=== PATIENT | male | born 1960 | race African-American/Black ===

== ENCOUNTER 2019-06-29 08:58 | Emergency (ER) | payer MEDICAID ==
[~2019-06-29] VITALS: Ht 175.3 cm; Wt 91.0 kg
[2019-06-29] MEDS ORDERED: IBUPROFEN 400MG TABLET PO ONE (09:30)
[2019-06-29 09:35] VITALS: BP 145/97
== END 2019-06-29 10:41 | disposition home or self-care (01) ==
LOC: ER 09:16
DX: M25.552 Pain in left hip (principal)
CPT/HCPCS: 73502; 99283

== ENCOUNTER 2019-08-03 12:42 | Emergency (ER) | payer MEDICAID ==
[~2019-08-03] VITALS: Ht 175.3 cm; Wt 89.0 kg
[2019-08-03 12:48] VITALS: BP 115/74
[2019-08-03] MEDS ORDERED: TETANUS, DIPHTHERIA, PERTUSSIS VAC/PF 0.5ML (>7YR OLD) IM ONE (13:15)
[2019-08-03] MEDS ORDERED: ACETAMINOPHEN 500MG TABLET PO ONE (13:30)
== END 2019-08-03 15:06 | disposition home or self-care (01) ==
LOC: ER 12:42
DX: S61.411A Laceration without foreign body of right hand, initial encounter (principal); W54.0XXA Bitten by dog, initial encounter; Y93.89 Activity, other specified; Y92.89 Other specified places as the place of occurrence of the external cause; Y99.8 Other external cause status
CPT/HCPCS: 73130; 90471; 90715; 99283

== ENCOUNTER 2019-08-24 15:24 | Emergency (ER) | payer MEDICAID ==
[~2019-08-24] VITALS: Ht 177.8 cm; Wt 85.0 kg
[2019-08-24 16:18] VITALS: BP 129/84
[2019-08-24] MEDS ORDERED: IBUPROFEN 200MG TABLET PO ONE (16:30)
== END 2019-08-24 18:57 | disposition home or self-care (01) ==
LOC: ER 15:24
DX: S61.451A Open bite of right hand, initial encounter (principal); W54.0XXA Bitten by dog, initial encounter; Y93.89 Activity, other specified; Y92.89 Other specified places as the place of occurrence of the external cause; R03.0 Elevated blood-pressure reading, without diagnosis of hypertension
CPT/HCPCS: 73130; 99283

== ENCOUNTER 2022-10-15 18:23 | Emergency (ER) | payer MEDICAID ==
[~2022-10-15] VITALS: Ht 167.6 cm; Wt 86.0 kg
[2022-10-15] MEDS ORDERED: KETOROLAC 30MG/ML VIAL IM ONE (22:00)
[2022-10-15] MEDS ORDERED: METHOCARBAMOL 500MG TABLET PO ONE (22:00)
[2022-10-15] MEDS ORDERED: METH-653 MT (22:11)
[2022-10-15 22:12] VITALS: BP 165/97
== END 2022-10-15 22:18 | disposition home or self-care (01) ==
LOC: ER 18:23
DX: S33.5XXA Sprain of ligaments of lumbar spine, initial encounter (principal); X58.XXXA Exposure to other specified factors, initial encounter; Y93.89 Activity, other specified; Y92.89 Other specified places as the place of occurrence of the external cause
CPT/HCPCS: 96372; 99283; J1885